=== PATIENT | female | born 2000 | race African-American/Black ===

== ENCOUNTER 2018-12-18 16:28 | Emergency (ER) | payer OTHER ==
[~2018-12-18] VITALS: Ht 160 cm; Wt 93.0 kg
[2018-12-18 17:56] LABS: ABSOLUTE NEUTROPHILS 13.3 thou/uL (1.4-8.2); BASOPHILS 0.2 % (0.0-2.0); EOSINOPHILS 0.1 % (0.0-3.0); HEMATOCRIT 39.4 % (37.0-47.0); HEMOGLOBIN 13.4 gm/dL (12.0-15.0); LYMPHOCYTES 7.6 % (24.0-44.0); MCH 31.6 pg (26.0-34.0); MCV 92.9 fL (80.0-100.0); MONOCYTES 5.1 % (1.0-8.0); PLATELET COUNT 266 thou/uL (150-400); RBC 4.24 mil/uL (4.20-5.00); RDW 12.9 % (10.5-14.5); WBC 15.3 thou/uL (4.0-11.0)
[2018-12-18 18:04] LABS: CALCIUM 9.4 mg/dL (8.5-10.1); CREATININE 1.1 mg/dL (0.6-1.0); POTASSIUM 3.2 mmol/L (3.5-5.1)
[2018-12-18 18:10] LABS: ALBUMIN 3.5 g/dL (3.4-5.0); TOTAL BILIRUBIN 0.6 mg/dL (<0.1-1.0); TOTAL PROTEIN 7.8 g/dL (6.4-8.2)
[2018-12-18] MEDS ORDERED: ONDANSETRON HCL4 M2 PO (19:05)
[2018-12-18 19:30] VITALS: BP 129/81
[2018-12-18 20:27] LABS: URINE BILIRUBIN NEGATIVE (Negative); URINE BLOOD 3+ (Negative); URINE CLARITY CLEAR; URINE COLOR YELLOW; URINE GLUCOSE-RANDOM* NEGATIVE (Negative); URINE KETONES 2+ (Negative); URINE LEUKOCYTES-REFLEX NEGATIVE (Negative); URINE NITRITE-REFLEX NEGATIVE (Negative); URINE PROTEIN (DIPSTICK) 1+ (Negative); URINE UROBILINOGEN 0.2 E.U./dl (0.2-1.0)
[2018-12-18 20:46] LABS: AMORPHOUS PHOSPHATES Few /LPF (None Seen); BACTERIA-REFLEX None Seen /HPF (None Seen); CASTS None Seen /LPF (None Seen); CRYSTALS None Seen /LPF (None Seen); MUCUS None Seen strn/LPF (None Seen); SQUAMOUS None Seen /LPF (0-3); URINE RBC 3-10 Few /HPF (0-2); URINE WBC-REFLEX 0-5 Rare /HPF (0-5)
== END 2018-12-18 19:29 | disposition home or self-care (01) ==
LOC: ER 16:28
PROVIDERS: Physician Assistant
DX: E87.6 Hypokalemia (principal); R11.2 Nausea with vomiting, unspecified; R10.9 Unspecified abdominal pain

== ENCOUNTER 2019-12-16 12:15 | Emergency (ER) | payer OTHER ==
[~2019-12-16] VITALS: Ht 162.6 cm; Wt 127.0 kg
[~2019-12-16 12:15] MED LIST: ONDANSETRON HCL4 M2 PO
[2019-12-16] MEDS ORDERED: PROMETH-CODEIN 65 ML PO (13:51)
[2019-12-16] MEDS ORDERED: PREDNISONE 20 M20 M1 PO (13:51)
[2019-12-16 15:16] VITALS: BP 112/83
== END 2019-12-16 15:16 | disposition home or self-care (01) ==
LOC: ER 12:15
DX: J45.909 Unspecified asthma, uncomplicated (principal)